=== PATIENT | female | born 1980 | race Two or more races ===

== ENCOUNTER 2020-07-28 21:23 | Emergency (ER) | payer OTHER ==
[~2020-07-28] VITALS: Ht 160 cm; Wt 70.3 kg
[2020-07-28] MEDS ORDERED: CIPROFLOXACIN500 MG (21:34)
[2020-07-28] MEDS ORDERED: PHENAZOPYRIDIN200 MG (21:35)
== END 2020-07-29 00:28 | disposition home or self-care (01) ==
LOC: ER 21:23
DX: M25.571 Pain in right ankle and joints of right foot (principal)

== ENCOUNTER 2022-10-12 04:27 | Emergency (ER) | payer OTHER ==
[~2022-10-12] VITALS: Ht 160 cm; Wt 74.8 kg
[~2022-10-12 04:27] MED LIST: CIPROFLOXACIN500 MG; PHENAZOPYRIDIN200 MG
== END 2022-10-12 07:56 | disposition home or self-care (01) ==
LOC: ER 04:27
DX: M62.830 Muscle spasm of back (principal); Z88.8 Allergy status to other drugs, medicaments and biological substances